=== PATIENT | female | born 1960 | race Two or more races ===

== ENCOUNTER 2017-10-21 08:28 | Outpatient (CLI) | payer OTHER | END 2017-10-21 09:05 | disposition home or self-care (01) | LOC: RAD 501 08:28 | DX: S92.812A Other fracture of left foot, initial encounter for closed fracture (principal) ==

== ENCOUNTER → 2019-12-26 14:43 | Outpatient (CLI) | payer OTHER | END | disposition home or self-care (01) | LOC: LAB 14:43 | DX: Z20.828 Contact with and (suspected) exposure to other viral communicable diseases (principal); Z11.59 Encounter for screening for other viral diseases ==

== ENCOUNTER → 2020-05-21 15:00 | Outpatient (CLI) | payer OTHER | END | disposition home or self-care (01) | LOC: PPH VACUNA 15:00 | DX: Z23 Encounter for immunization (principal) ==

== ENCOUNTER → 2020-06-11 13:49 | Outpatient (CLI) | payer OTHER | END | disposition home or self-care (01) | LOC: PPH VACUNA 13:49 | DX: Z23 Encounter for immunization (principal) ==

== ENCOUNTER 2020-08-17 15:10 | Outpatient (CLI) | payer OTHER | END 2020-08-17 15:22 | disposition home or self-care (01) | LOC: RAD 15:10 | PROVIDERS: ATTEND Orthopaedic Surgery Sports Medicine | DX: M25.511 Pain in right shoulder (principal) ==